=== PATIENT | female | born 1975 | race Two or more races ===

== ENCOUNTER 2016-10-17 12:32 | Emergency (ER) | payer OTHER ==
--- NOTE | 2016-10-17 15:23 | RAD ---
Name: VINCE RAMIREZ Exam: Two-view chest Comparison: 09/13/2015 Clinical history: Cough and congestion Findings: 2 views of the chest are submitted. The heart mediastinum and hilar structures are within normal limits. There is no failure, infiltrate, pleural effusion or pneumothorax. Regional skeleton is within normal limits. Impression: No acute cardiopulmonary process
== END 2016-10-17 15:40 | disposition home or self-care (01) ==
LOC: ED 12:32
DX: J20.9 Acute bronchitis, unspecified (principal); J02.9 Acute pharyngitis, unspecified; J45.909 Unspecified asthma, uncomplicated

== ENCOUNTER 2017-01-05 19:34 | Emergency (ER) | payer OTHER ==
[2017-01-05] MEDS ORDERED: PREDNISONE 20 MG TABLET ONE (20:09)
[2017-01-05] MEDS ORDERED: DOXYCYCLINE HYCLATE 100 MG TABLET ONE (20:10)
== END 2017-01-05 20:33 | disposition home or self-care (01) ==
LOC: ED 19:34
DX: J18.9 Pneumonia, unspecified organism (principal); F17.219 Nicotine dependence, cigarettes, with unspecified nicotine-induced disorders
CPT/HCPCS: 99282; 99283; J7512; A9270